=== PATIENT | male | born 1935 | race Caucasian/White ===

== ENCOUNTER 2020-11-18 14:13 | Emergency (ER) | payer MEDICARE, OTHER, SELFPAY ==
[2020-11-18 14:48] VITALS: BP 149/71; PULSE 73; RESP 18; TEMP 36.9; O2SAT 99; BMI 24.0
--- NOTE | 2020-11-18 15:11 | DI.RAD.S_ITS ---
PROCEDURE: XR KNEE LT 3V INDICATIONS: knee pain TECHNIQUE: 3 views of the knee were acquired. COMPARISON: None. FINDINGS: Bones: No fractures or dislocations. No suspicious bony lesions. Soft tissues: No joint effusion. Superior patellar enthesophyte. IMPRESSION: No fracture. No osseous lesion. If symptoms and/or clinical suspicion for pathology persists, further assessment with repeat radiographs (7-10 days) or advanced imaging (e.g. CT, MRI or bone scan) should be considered. Dictated by: Katie Cruz MD, PhD on 11/18/2020 at 15:31 Approved by: Katie Cruz MD, PhD on 11/18/2020 at 15:34
--- NOTE | 2020-11-18 17:47 | ED_ITS ---
HPI - Extremity Injury (Lower) General Chief Complaint: Extremity Injury, Lower Stated Complaint: left knee pain Time Seen by Provider: 11/18/20 17:47 Source: patient Mode of arrival: Wheelchair Limitations: no limitations History of Present Illness HPI Narrative: Patient is an 85-year-old male who presents with left knee pain and swelling. He says that he was kneeling on cement floor 2 days ago. Since then he has had increased swelling and redness. No fevers or chills. It hurts to walk. He is able to flex and extend his knee but it hurts. Related Data Previous Rx's Medication Instructions Recorded cephalexin 500 mg capsule 500 mg PO BID 7 Days #14 cap 11/18/20 Allergies Allergy/AdvReac Type Severity Reaction Status Date / Time No Known Drug Allergies Allergy Verified 11/18/20 14:48 Review of Systems Review of Systems Narrative: GENERAL: Denies chills,fever HEENT: Denies throat pain RESPIRATORY: Denies dyspnea, cough, wheezing CARDIOVASCULAR: Denies chest pain, palpitations GASTROINTESTINAL: Denies nausea, vomiting MUSCULOSKELETAL: See HPI SKIN: Mild redness NEUROLOGIC: Denies weakness, dizziness, headache, numbness 8 point review of systems is negative except for those stated above and HPI Patient History Social History Smoking Status: Former smoker Smoking Status: Former smoker Substance Use Type: does not use Exam Initial Vital Signs Initial Vital Signs: Vital Signs Temperature 98.4 F 11/18/20 14:48 Pulse Rate 73 11/18/20 14:48 Respiratory Rate 18 11/18/20 14:48 Blood Pressure 149/71 H 11/18/20 14:48 Pulse Oximetry 99 11/18/20 14:48 GENERAL: Pleasant alert 85-year-old male CARDIOVASCULAR: peripheral pulses in tact, cap refill <2 sec RESPIRATORY: No respiratory distress, speaks in full sentences without difficulty EXTREMITIES: Normal range of motion, no clubbing or edema. Neurovascularly intact Left knee: Ballotable patella, very mild erythema over the patella no laceration. He is able to flex and extend his knee actively. Knee is otherwise stable NEUROLOGICAL: Cranial nerves II through XII grossly intact. Normal gait and speech. SKIN: Warm, dry, no petechiae, no rashes or lesions. Course Orders Ordered: ED Orders 11/18/20 15:11 XR knee LT 3V Stat Vital Signs Vital signs: Vital Signs - 8 hr 11/18/20 14:48 11/18/20 17:51 Temperature 98.4 F Pulse Rate 73 67 Respiratory Rate 18 18 Blood Pressure 149/71 H 147/68 H Pulse Oximetry 99 [facility] - Extremity Injury (Lower) Lab Data Labs: Point of Care Testing Glucose POC 177 Imaging Data Extremity x-ray #1: Radiologist's Impression: PROCEDURE: XR KNEE LT 3V INDICATIONS: knee pain TECHNIQUE: 3 views of the knee were acquired. COMPARISON: None. FINDINGS: Bones: No fractures or dislocations. No suspicious bony lesions. Soft tissues: No joint effusion. Superior patellar enthesophyte. IMPRESSION: No fracture. No osseous lesion. If symptoms and/or clinical suspicion for pathology persists, further assessment with repeat radiographs (7-10 days) or advanced imaging (e.g. CT, MRI or bone scan) should be considered. Dictated by: Katie Cruz MD, PhD on 11/18/2020 at 15:31 MDM Narrative Medical decision making narrative: Patient has mild erythema with swelling. At this time I am not concerned about septic joint. Patient appears well. More likely a bursitis. However left knee is mild erythematous right knee is not erythematous. They live in [place]. Discharge Plan Departure Patient Disposition: Home Clinical Impression: Bursitis of left knee Qualifiers: Knee bursitis location: prepatellar bursitis Qualified Code(s): M70.42 - Prepatellar bursitis, left knee Cellulitis Qualifiers: Site of cellulitis: extremity Site of cellulitis of extremity: lower extremity Laterality: left Qualified Code(s): L03.116 - Cellulitis of left lower limb Instructions: Bursitis Activity Restrictions/Additional Instructions: *You have been diagnosed with bursitis of left knee with mild cellulitis *What to do: At this time you have inflammation of your knee. Elevate and ice 20-30 minutes at a time. Wear knee brace if you feel like it helps. You may remove it as you see fit. Please use cane while walking *Continue to take medications as directed Ibuprofen 400 mg every 6-8 hours as needed for pain Keflex 500 mg 2 times a day for 1 week *Follow up with your primary care provider in 2-3 days *Return to ER if you should have increasing redness, increasing swelling, fever more than 100.4, inability to walk or any new, worsening or concerning symptoms Prescriptions: New cephalexin 500 mg capsule 500 mg PO BID 7 Days Qty: 14 RF: 0 Referrals: Rick Booker MD [Primary Care Provider] -
[2020-11-18 17:51] VITALS: BP 147/68; PULSE 67; RESP 18
== END 2020-11-18 18:08 | disposition home or self-care (01) ==
PROVIDERS: Emergency Provider Emergency Medicine; PCP Internal Medicine
DX: M70.42 Prepatellar bursitis, left knee (principal); L03.116 Cellulitis of left lower limb; X50.1XXA Overexertion from prolonged static or awkward postures, initial encounter
CPT/HCPCS: 73562; 82962; 99283

== ENCOUNTER → 2021-06-08 12:57 | Outpatient (CLI) | payer MEDICARE, OTHER, SELFPAY ==
--- NOTE | 2021-06-08 | DI.CT.S_ITS ---
PROCEDURE: CT SOFT TISSUE NECK W CON INDICATIONS: Epistaxis TECHNIQUE: After the administration of intravenous contrast, 3.0 mm axial sections acquired from the sella to the aortic arch. Additional oblique axial 3.0 mm sections acquired through the pharynx. 3 mm thick coronal and sagittal reformats were generated. For radiation dose reduction, the following was used: automated exposure control. COMPARISON: None. FINDINGS: There is an enhancing left nasopharyngeal mass with adjacent aerated secretions. The mass is difficult to delineate from the adjacent normal nasopharyngeal mucosa and from adjacent secretions, however it appears to measure at least 2.2 x 2.6 cm maximum axial dimension and maximum craniocaudal dimension of 2.4 cm. The mass spans the full lateral with of the nasopharyngeal space. There is deep extension into the fat adjacent to the nasopharyngeal planes at the level of the fossae of Rosenmuller and probable obstruction of the eustachian tubes. No definite cervical or supraclavicular lymphadenopathy identified. Vascular structures of the neck enhance normally. Uniform thyroid gland attenuation. Parotid and submandibular glands are unremarkable. No acute or suspicious osseous lesion. Included portions of the lung apices are clear. IMPRESSION: Nasopharyngeal mass suspicious for nasopharyngeal carcinoma. Tissue sampling recommended. MRI of the face with IV contrast is also recommended for local staging purposes. No evidence of regional lymphadenopathy. Dictated by: Guero Villatoro M.D. on 06/08/2021 at 16:48 Approved by: Guero Villatoro M.D. on 06/08/2021 at 16:52
[2021-06-08 13:34] LABS: BUN Creatinine Ratio 29.6 (6-22); Blood Urea Nitrogen 32 mg/dL (9-20); Estimated Glomerular Filt Rate > 60.0 mL/min (>60)
== END ==
PROVIDERS: PCP Internal Medicine; Referring Provider Otolaryngology; Visit Provider Otolaryngology
DX: J39.2 Other diseases of pharynx (principal); D49.2 Neoplasm of unspecified behavior of bone, soft tissue, and skin; R04.0 Epistaxis; J34.89 Other specified disorders of nose and nasal sinuses
CPT/HCPCS: 36415; 70491; 82565; 84520

== ENCOUNTER → 2021-07-07 13:15 | Outpatient (CLI) | payer MEDICARE, OTHER, SELFPAY ==
--- NOTE | 2021-07-07 | DI.MRI.S_ITS ---
PROCEDURE: MR ORBITS FACE NECK WO/W CON INDICATIONS: 85-year-old male with nasopharyngeal mass and history of colon, liver, prostate and gallbladder cancer TECHNIQUE: Multiplanar multisequential MRI images of the neck were obtained with and without intravenous contrast COMPARISON: [facility], CT, CT SOFT TISSUE NECK W CON, 06/08/2021, 14:07. FINDINGS: Nasopharyngeal mass lesions again noted. Mass in the nasopharynx crosses the midline and measures approximately 2.0 x 2.6 cm axial by 2.0 cm craniocaudal, similar to the prior exam. The mass erodes through floor of the sphenoid sinus and involves the sinus floor measuring up to 1.1 cm in thickness. There is associated mucosal thickening in the sinus as well. Mass also involves the clivus, extending to the posterior cortex of the clivus. Posterior clival cortex appears intact. Otherwise, the oral cavity and oropharynx is within normal limits. Visualized portions cervical spine unremarkable. Pituitary and intracranial contents within normal limits. IMPRESSION: 1. Nasopharyngeal carcinoma. Mass has eroded through the floor of the sphenoid sinus, and involves the clivus as well. There is additional mass along the floor of the sphenoid sinus. The posterior clival cortex appears intact, without definitive evidence of intracranial extension. Approved by: Parveen De Luna M.D. on 07/07/2021 at 15:24
== END ==
PROVIDERS: PCP Internal Medicine; Referring Provider Otolaryngology; Visit Provider Otolaryngology
DX: Z85.038 Personal history of other malignant neoplasm of large intestine (principal); C11.3 Malignant neoplasm of anterior wall of nasopharynx; Z85.46 Personal history of malignant neoplasm of prostate; Z85.05 Personal history of malignant neoplasm of liver; Z85.89 Personal history of malignant neoplasm of other organs and systems
CPT/HCPCS: 70543

== ENCOUNTER → 2021-12-07 11:33 | Outpatient (CLI) | payer MEDICARE, OTHER, SELFPAY ==
--- NOTE | 2021-12-07 | DI.MRI.S_ITS ---
PROCEDURE: MR ORBITS FACE NECK WO/W CON INDICATIONS: Malignant neoplasm of nasopharynx TECHNIQUE: Sagittal/axial/coronal T1 spin echo and STIR. After the administration of contrast, axial/coronal/sagittal T1 fast spin echo with fat saturation through the neck. COMPARISON: [facility], NM, PET NECK TO MID THIGH, 08/04/2021, 12:33. [facility], MR, MR ORBITS FACE NECK WO/W CON, 07/07/2021, 13:32. [facility], CT, CT SOFT TISSUE NECK W CON, 06/08/2021, 14:07. FINDINGS: Image quality: Excellent. Lymph nodes: No enlarged nodes are seen throughout the neck. Vessels: Visualized vasculature appears normal, with normal flow voids and enhancement. Neck spaces: Abnormally enhancing soft tissue can be seen involving the nasopharynx, with growth into the sphenoid sinus. Given the irregularity of this process, it is difficult to measure. However, it appears to measure 3.1 cm craniocaudal by 2.1 cm AP, with a transverse extent 2 cm. When measured in a similar fashion, this is not believed to be significantly changed in size or extent compared to the prior MRI dated 07/07/2021. On the prior PET-CT, there was clear involvement of the left nasopharynx seen, at the fossa of Rosenmuller. On the current study, minimal generalized enhancement can be seen at this site. Glands: The parotid and submandibular glands appear normal. Thyroid gland is unremarkable. Miscellaneous: Visualized brain and orbits appear normal. Lung apices appear clear. Superficial soft tissues appear normal. Visualized sinuses and mastoids appear clear. Bones: There is erosion seen of the floor of the sphenoid sinus, with involvement the clivus. The bony erosion is self is better demonstrated on CT. IMPRESSION: Nasopharyngeal mass with gross into the sphenoid sinus, which is not significantly changed in size, when compared to the prior MRI. On the prior PET scan, there was involvement seen of the left nasopharynx at the fossa of Rosenmuller. There is minimal generalized enhancement seen at this site. Dictated by: Doroteo Vazquez M.D. on 12/07/2021 at 13:04 Approved by: Doroteo Vazquez M.D. on 12/07/2021 at 13:11
== END ==
PROVIDERS: PCP Internal Medicine; Referring Provider Internal Medicine Hematology & Oncology; Visit Provider Internal Medicine Hematology & Oncology
DX: C11.3 Malignant neoplasm of anterior wall of nasopharynx
CPT/HCPCS: 70543; A9579

== ENCOUNTER → 2022-03-29 14:22 | Outpatient (CLI) | payer MEDICARE, OTHER, SELFPAY ==
--- NOTE | 2022-03-29 | DI.MRI.S_ITS ---
PROCEDURE: MR ORBITS FACE NECK WO/W CON INDICATIONS: Malignant neoplasm of nasopharynx, unspecified TECHNIQUE: Sagittal/axial/coronal T1 spin echo and STIR. After the administration of contrast, axial/coronal/sagittal T1 fast spin echo with fat saturation through the neck. COMPARISON: [facility], MR, MR ORBITS FACE NECK WO/W CON, 07/07/2021, 13:32. [facility], MR, MR ORBITS FACE NECK WO/W CON, 12/07/2021, 12:02. FINDINGS: Image quality: Excellent. There is a nasopharyngeal mass demonstrating contrast enhancement. It demonstrates erosion through the sphenoid sinus in the sinus 4 with associated mucosal thickening. This is better appreciated on prior CT exam. There is involvement of the clivus. The mass overall on current exam appears more heterogeneous compared to prior exam. As noted on prior exam, given the irregularity of the mass as well as motion, exact measurements are a bit variable. However, it is felt have mildly increased in size measuring approximately 3.7 cm craniocaudal by approximately 2.5 cm AP by 3.2 cm transverse compared to 3.1 cm x 2.1 cm x 2.0 cm. There are areas of lobulated enhancement appearing to extend into the sphenoid sinuses slightly more prominent when compared to prior exam. Parotid and submandibular glands are within normal limits. IMPRESSION: Nasopharyngeal mass as described above felt to demonstrate mild appearance of interval increase in size compared to prior exam. Dictated by: Mariya Gallegos M.D. on 03/29/2022 at 17:08 Approved by: Mariya Gallegos M.D. on 03/29/2022 at 17:16
== END ==
PROVIDERS: PCP Internal Medicine; Referring Provider Physician Assistant; Visit Provider Physician Assistant
DX: C11.9 Malignant neoplasm of nasopharynx, unspecified; C61 Malignant neoplasm of prostate
CPT/HCPCS: 70543; A9579